=== PATIENT | female | born 2005 | race Caucasian/White ===

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

== ENCOUNTER 2024-07-16 08:06 | Emergency (ER) | payer OTHER ==
--- OUTSIDE RECORDS SUMMARY | 2024-07-16 08:09 | XMS REPORT | Continuity of Care Document ---
Author Name Unknown Address [address] [facility] [address] [place] [address] [facility] thconnect Address [address] [facility] [place] [address] Care Team Providers Care Conditioner Tumbler Name Role Phone CLAUDE DECKER Primary Care Physician Darlyn vailable BECKY MEEK Attending Clinician Unavail able Akinsimireya Becky MOSQUEDA Attending Clinician + MAYRA GALICIA Attending Clinician Unav artur Ultrasound, Tomasapadmini Attending Clinician Unavailandreas Zuñiga MD, Mayra Attending Clinician + MASON PLASCENCIA Attending Clinician MASON Calix Attending Clinician DAVID Hinson Attending Clinician Unavailable DAVID RUBIO Attending Clinician Unavailable AkinsiBecky Min Attending Clinician + LUANA JIMENEZ Attending Clinician UnavailLuana Alejandra CNM Attending Clinician [phone] Doctor Unassigned, Birdseye Attending Clinician U johnailyamel Provider[facility]St[facility] Hospital[facility] Temp Attending Clinician Darlyn vailable RACHEL ANDERSON Attending Clinician Unavailab le Lab, Adc Fam Pob I Attending Clinician Unavailab Tania Vaughn Attending Clinician [phone] TANIA RILEY Attending Clinician Unavailable Payers Payer Name Policy Type Policy Number Effective Date Expirati on Date Source [facility] PPO/POS [id number] 2023 00:00:00 [facility] [place] [id number] 2024 00:00:00 [place] [id number] 2022 00:00:00 Problems Condition Name Condition Details Condition Category Status Onset Date Resolution Date Last Treatment Date Treating Clinician Comments Source Supervisio n of high-risk Supervisio n of high-risk Disease Active - 00:00: 00 [facility] Obesity in Obesity in Disease Active 9-11 00:00: 00 [facility] Irregular menstrual cycle Irregular menstrual cycle Disease Active 7-05 00:00: 00 [facility] Well woman exam Well woman exam Disease Resolve d 0 7-05 00:00: 00 2024-05-30 00:00:00 2024-05-30 08:28:05 [facility] Well woman exam Well woman exam Disease Resolve d 0 5-17 00:00: 00 2022-08-08 00:00:00 2022-08-08 17:23:22 [facility] Allergies, Adverse Reactions, Alerts Allergy Name Allergy Type Status Severity Reaction(s) Onset Date Inactive Date Treating Clinician Comments Source AMOXICIL NAMAN DRUG INGREDI Active Anaphylaxis 0 5-17 00:00: 00 [facility] PENICILL IN DRUG INGREDI Active Anaphylaxis 0 5-17 00:00: 00 [facility] Amoxicil naman Propensi ty to adverse reaction s Active Rash 0 5-17 00:00: 00 [facility] Penicill in Propensi ty to adverse reaction s Active Rash 0 5-17 00:00: 00 [facility] Social History Social Habit Start Date Stop Date Quantity Comments Source ASSERTION 2024-03-23 00:00:00 [facility] of Social function 2024-05-30 00:00:00 2024-05-30 00:00:00 [facility] Alcoholic beverage intake 2024-05-30 00:00:00 2024-05-30 00:00:00 Ex-drinker (finding) [facility] Alcohol intake 2023-03-23 00:00:00 2023-03-23 00:00:00 Ex-drinker (finding) [facility] Exposure to SARS-CoV-2 (event) 2022-07-25 00:00:00 2022-08-04 09:56:00 Not sure [facility] Tobacco use and exposure 2022-05-11 00:00:00 2022-05-11 00:00:00 Smokeless tobacco non-user [facility] Sex assigned at 2003 00:00:00 2005 00:00:00 [facility] Smoking Status Start Date Stop Date Source Tobacco smoking consumption unknown [facility] Never smoked tobacco [facility] Medications Ordered Medication Name Filled Medication Name Start Date Stop Date Current Medication? Ordering Clinician Indication Dosage Frequency Signature (SIG) Comments Components Source PNV 67-iron ps-folate no.1-dha (VITAFOL ULTRA) 29 mg iron- 1 mg-200 mg Cap 05-30 00:00: 00 Yes [id number] 1{each} Take 1 Each by mouth in the morning. [facility] proMETHazin e 25 mg tablet 05-30 00:00: 00 Yes [id number] 25mg Take 1 tablet by mouth every 6 (six) hours as needed for Nausea and Vomiting (N/V). [facility] levonorgest rel-ethinyl estradiol (SRONYX) 0.1-20 mg-mcg per tablet 03-23 00:00: 00 05-30 00:00 :00 No [id number] 1{tbl} Take 1 tablet by mouth in the morning. [facility] levonorgest rel-ethinyl estradiol (SRONYX) 0.1-20 mg-mcg per tablet 2021-09 00:00: 00 03-23 00:00 :00 No [id number] 1{tbl} Take 1 tablet by mouth in the morning. [facility] levonorgest rel-ethinyl estradiol (SRONYX) 0.1-20 mg-mcg per tablet 8- 00:00: 00 08-04 00:00 :00 No [id number] 1{tbl} Take 1 tablet by mouth in the morning. [facility] levonorgest rel-ethinyl estradiol (SRONYX) 0.1-20 mg-mcg per tablet 5-31 00:00: 00 05-11 00:00 :00 No [id number] 1{tbl} Take 1 tablet by mouth daily. [facility] VYVANSE 20 mg capsule 4- 00:00: 00 08-08 00:00 :00 No 20mg Take 20 mg by mouth daily. [facility] Vital Signs Vital Name Observation Time Observation Value Comments S ource Systolic blood pressure 2024-06-27 12:03:00 111 mm[Hg] [facility] Diastolic blood pressure 2024-06-27 12:03:00 68 mm[Hg] [facility] Heart rate 2024-06-27 12:03:00 78 /min [facility] Body temperature 2024-06-27 12:03:00 36 Micaela [facility] Respiratory rate 2024-06-27 12:03:00 18 /min [facility] Body height 2024-06-27 12:03:00 167.6 cm [facility] Body weight 2024-06-27 12:03:00 115.395 kg [facility] BMI 2024-06-27 12:03:00 41.06 kg/m2 [facility] Systolic blood pressure 2024-05-30 12:50:00 116 mm[Hg] [facility] Diastolic blood pressure 2024-05-30 12:50:00 74 mm[Hg] [facility] Heart rate 2024-05-30 12:50:00 101 /min [facility] Body temperature 2024-05-30 12:50:00 36.67 Micaela [facility] Respiratory rate 2024-05-30 12:50:00 18 /min [facility] Body height 2024-05-30 12:50:00 167.6 cm [facility] Body weight 2024-05-30 12:50:00 115.44 kg [facility] BMI 2024-05-30 12:50:00 41.08 kg/m2 [facility] Systolic blood pressure 2023-03-23 14:22:00 109 mm[Hg] [facility] Diastolic blood pressure 2023-03-23 14:22:00 67 mm[Hg] [facility] Heart rate 2023-03-23 14:22:00 87 /min [facility] Body temperature 2023-03-23 14:22:00 36.17 Micaela [facility] Respiratory rate 2023-03-23 14:22:00 18 /min [facility] Body height 2023-03-23 14:22:00 167.6 cm [facility] Body weight 2023-03-23 14:22:00 100.699 kg [facility] BMI 2023-03-23 14:22:00 35.83 kg/m2 [facility] Systolic blood pressure 2022-08-04 15:58:00 119 mm[Hg] [facility] Diastolic blood pressure 2022-08-04 15:58:00 76 mm[Hg] [facility] Heart rate 2022-08-04 15:58:00 79 /min [facility] Body temperature 2022-08-04 15:58:00 36.67 Micaela [facility] Respiratory rate 2022-08-04 15:58:00 18 /min [facility] Body height 2022-08-04 15:58:00 167.6 cm [facility] Body weight 2022-08-04 15:58:00 94.575 kg [facility] BMI 2022-08-04 15:58:00 33.65 kg/m2 [facility] Body mass index (BMI) [Percentile] Per age and sex 2022-08-04 15:58:00 96.91 % [facility] Systolic blood pressure 2022-05-11 14:50:00 109 mm[Hg] [facility] Diastolic blood pressure 2022-05-11 14:50:00 71 mm[Hg] [facility] Heart rate 2022-05-11 14:50:00 82 /min [facility] Body temperature 2022-05-11 14:50:00 36.22 Micaela [facility] Respiratory rate 2022-05-11 14:50:00 18 /min [facility] Body height 2022-05-11 14:50:00 167.6 cm [facility] Body weight 2022-05-11 14:50:00 88.196 kg [facility] BMI 2022-05-11 14:50:00 31.38 kg/m2 [facility] Body mass index (BMI) [Percentile] Per age and sex 2022-05-11 14:50:00 95.59 % [facility] Procedures Procedure Date / Time Performed Performing Clinicia n Source ALPHA FETOPROTEIN-MATERNAL SER 2024-06-27 12:57:00 Becky Meek [facility] POCT URINALYSIS 2024-06-27 12:06:00 Becky Meek [facility] FIRST TRIMESTER ULTRASOUND 2024-06-05 20:23:00 Becky Meek [facility] POCT TEST 2024-05-30 12:49:00 Sabino Meek [facility] POCT URINALYSIS W/O SPECIFIC GRAVITY 2024-05-30 12:49:00 Becky Meek [facility] ASSIGNMENT OF BENEFITS 2023-03-23 13:45:37 Docto r Unassigned, Birdseye [facility] Encounters Start Date/Time End Date/Time Encounter Type Admission Type Attending Clinicians Care Facility Care Department Encounter ID Source 2024-08-02 13:00:00 2024-08-02 13:00:00 Outpatient P [facility] [id number] [facility] 2024-07-06 00:00:00 2024-07-09 10:09:12 Telephone FantasmaLucianoBecky C [facility] HONING MACHINE OPERATOR [facility]ILD [facility] 1.2.840.114 350.1.13.10 4.2.7.2.686 [id number] [facility] 2024-06-27 07:15:00 2024-06-27 07:56:39 Outpatient R BECKY MEEK [facility] [id number] [facility] 2024-06-27 07:15:00 2024-06-27 07:56:39 Routine Visit Fantasma Becky Conley [facility] HONING MACHINE OPERATOR [facility] & CHILD [facility] 1..840.114 350.1.13.10 4.2.7.2.686 [id number] [facility] 2024-06-05 00:00:00 2024-06-05 16:57:01 Abstract Becky Meek [facility] HONING MACHINE OPERATOR [facility]ILD [facility] 1..840.114 350.1.13.10 4.2.7.2.686 [id number] [facility] 2024-06-05 15:00:00 2024-06-05 15:56:13 Outpatient R MAYRA WRIGHT [facility] [id number] [facility] 2024-06-05 15:00:00 2024-06-05 15:56:13 Set Up Machinist Visit Ultrasound, [facility] Mayra Wright [facility] HONING MACHINE OPERATOR [facility] & CHILD [facility] 1..840.114 350.1.13.10 4.2.7.2.686 [id number] [facility] 2024-05-30 08:15:00 2024-05-30 09:03:17 Outpatient R BECKY MEEK [facility] [id number] [facility] 2024-05-30 08:15:00 2024-05-30 09:03:17 Initial Visit Akinsipe, Becky C [facility] HONING MACHINE OPERATOR [facility] CHILD [facility] 1.2840.114 350.1.13.10 4.2.7.2.686 [id number] [facility] 2024-05-04 10:00:00 2024-05-04 10:00:00 Outpatient R MASON YEUNG S, MASON [facility] [id number] [facility] 2023-08-02 13:07:24 2023-08-02 13:07:24 Outpatient SFA SFA [id number] Mejia Ahmadi 2023-06-22 08:15:00 2023-06-22 08:15:00 Outpatient R BECKY MEEK [facility] [id number] [facility] 2023-03-28 00:00:00 2023-03-28 00:00:00 Patient Secure Msg Becky Meek [facility] HONING MACHINE OPERATOR [facility] 1..114 350.1.13.10 4.2.7.2.686 [id number] [facility] 2023-03-23 09:30:00 2023-03-23 11:05:26 Outpatient LUANA HERNANDEZ [facility] [id number] [facility] 2023-03-23 09:30:00 2023-03-23 11:05:26 Office Visit Becky Meek Brenda A [facility] HONING MACHINE OPERATOR [facility]ILD [facility] 1.20.114 350.1.13.10 4.2.7.2.686 [id number] [facility] 2023-03-23 00:00:00 2023-03-23 00:00:00 Orders Only Doctor Unassigned, Birdseye [facility] 1.840.114 350.1.13.10 4.2.7.2.686 [id number] [facility] 2023-02-03 09:30:00 2023-02-03 09:30:00 Outpatient BECKY PARKER [facility] [id number] [facility] 2022-08-04 09:45:00 2022-08-04 10:07:44 Office Visit Provider, TomasaRmchp Becky Burgos Brenda A [facility] HONING MACHINE OPERATOR [facility]ILD [facility] ..840.114 350.1.13.10 4.2.7.2.686 [id number] [facility] 2022-08-04 09:45:00 2022-08-04 10:07:44 Outpatient LUANA HERNANDEZ [facility] [id number] [facility] 2022-05-11 09:30:00 2022-05-11 10:00:44 Outpatient BECKY PARKER [facility] [id number] [facility] 2022-05-11 09:30:00 2022-05-11 10:00:44 Office Visit Becky Meek [facility] HONING MACHINE OPERATOR [facility] 1..840.114 350.1.13.10 4.2.7.2.686 [id number] [facility] 2022-02-16 14:45:00 2022-02-16 15:25:38 Office Visit Becky Meek [facility] HONING MACHINE OPERATOR [facility]ILD [facility] 1..840.114 350.1.13.10 4.2.7.2.686 [id number] [facility] 2022-02-16 14:45:00 2022-02-16 15:25:38 Outpatient BECKY PARKER [facility] [id number] [facility] 2022-02-16 14:45:00 2022-02-16 14:45:00 Outpatient R BECKY MEEK [facility] [id number] [facility] 2022-02-16 14:45:00 2022-02-16 14:45:00 Outpatient R BECKY MEEK [facility] [id number] [facility] 2022-02-02 13:15:00 2022-02-02 14:35:42 Outpatient R BECKY MEEK [facility] [id number] [facility] 2022-02-02 13:15:00 2022-02-02 14:35:42 Office Visit Becky Meek [facility] HONING MACHINE OPERATOR [facility] 1.2.840.114 350.1.13.10 4.2.7.2.686 [id number] [facility] 2022-02-02 13:15:00 2022-02-02 14:35:42 Outpatient R BECKY MEEK [facility] [id number] [facility] 2022-02-02 00:00:00 2022-02-02 00:00:00 Orders Only Doctor Unassigned, Birdseye [facility] 1.2.840.114 350.1.13.10 4.2.7.2.686 [id number] [facility] 2021-12-29 00:00:00 2021-12-29 00:00:00 Orders Only Doctor Unassigned, Birdseye [facility] 1.2.840.114 350.1.13.10 4.2.7.2.686 [id number] [facility] 2021-07-01 00:00:00 2021-07-01 00:00:00 Orders Only Doctor Unassigned, Birdseye [facility] 1.2.840.114 350.1.13.10 4.2.7.2.686 [id number] [facility] 2021-06-18 00:00:00 2021-06-18 00:00:00 Patient Secure Msg Doctor Unassigned, Birdseye [facility] 1..840.114 350.1.13.10 4.2.7.2.686 [id number] [facility] 2021-04-22 00:00:00 2021-04-22 00:00:00 Orders Only Doctor Unassigned, Birdseye [facility] 1.2.840.114 350.1.13.10 4.2.7.2.686 [id number] [facility] 2020-10-04 16:00:00 2020-10-04 16:00:00 Outpatient R RACHEL ANDERSON [facility] [id number] [facility] 2020-08-07 14:34:56 2020-08-07 14:54:56 Laboratory Only Lab, Adc [facility] Po I Tania Riley [facility] Office [address] 1..840.114 350.1.13.10 4.2.7.2.686 [id number] [facility] 2020-08-07 14:00:00 2020-08-07 14:00:00 Outpatient TANIA CASH [facility] [id number] [facility] Results Test Description Test Time Test Comments Results Result Co mments Source [facility] Urinalysis w/o Specific [id number] 12:49:00* Test Item Value Reference Range Interpretation Comme nts POCT PH U (test code = 3254) 6 mg/dl 5-8 POCT U LEUK EST (test code = 3263) 1+ Negative - Negative POCT U NIT (test code = 3262) neg Negative - Negati ve POCT U PROT (test code = 3259) trace Negative - Negat jyoti POCT U GLU (test code = 3256) neg Negative - Negati ve POCT U KETONE (test code = 3258) neg Negative - Neg ative POCT U BLD (test code = 3257) trace Negative - Negati ve [facility] [id number] 12:49:00* Test Item Value Reference Range Interpretation Comme nts POCT PREG (test code = 1605) Positive On board controls acceptable with C Line (test code = 3574) Yes POCT PREG LOT # (test code = 3575) POCT PREG TEST DATE ( test code = 3576) [facility] Notes Date/Time Note Provider Source 2024-07-09 10:01:34 Notified patient of results and need for genetic counseling. Pt verbalized understanding. 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 Notified patient provider will review results and call back with POC. Pt verbalized understanding. JOESPH DANIELLE RN 07/09/2024 9:39 AM T [facility] 2024-07-06 15:01:48 Keyur Zelaya is a 18 year old female returning missed call Carmencita Perea [facility] 2024-07-06 14:57:00 Attempted to call patient, no answer, left vm. Maggie Washington LVN [facility] 2024-07-06 13:53:05 Keyur Zelaya is a 18 year old female Pt is calling speak with the nurse about her gestational age. Rick Drummond [facility]
[2024-07-16] MEDS ORDERED: DICYCLOMINE HCL 20 MG/2 ML AMP IM ONE (08:44)
[2024-07-16] MEDS ORDERED: ONDANSETRON 4 MG/2 ML VIAL ONE (08:44)
[2024-07-16] MEDS ORDERED: NA CHLORIDE 0.9% 1,000 ML ONE (08:44)
[2024-07-16 09:05] LABS: Specific Gravity 1.022 (1.005-1.030); Urine Bilirubin NEGATIVE (Negative); Urine Blood Negative (Negative); Urine Clarity Clear (Clear); Urine Color Light-Yellow (Yellow); Urine Glucose NEGATIVE (Negative); Urine Ketones NEGATIVE (Negative); Urine Microscopic Reflex YN NO UMIC; Urine Nitrite NEGATIVE (Negative); Urine Protein NEGATIVE (Negative); Urine Urobilinogen Normal (Normal); Urine pH 6.5 (5.0-7.0)
[2024-07-16 09:06] LABS: Absolute Eosinophils 0.1 K/uL (0-0.5); Absolute Lymphocytes (CBC) 2.1 K/uL (0.7-4.9); Absolute Monocytes 0.4 K/uL (0.1-1.3); Absolute Neutrophil 8.5 K/uL (1.8-8.0); Basophils % 0.3 % (0-1.3); Eosinophils % 0.8 % (0-4.4); Hematocrit 34.6 % (36.0-45.0); Hemoglobin 11.7 g/dL (12.0-15.0); MCHC 33.8 g/dL (32.0-36.0); MCV 88.7 fL (80-100); MPV 9.3 fL (7.6-11.3); Monocytes % 3.4 % (3.3-12.3); Neutrophils % 76.5 % (41.7-73.7); Platelets 228 thou/uL (152-406); Red Cell Distribution Width 12.7 % (12.1-15.2)
[2024-07-16 09:14] LABS: Specific Gravity 1.022 (1.005-1.030)
[2024-07-16 09:17] LABS: Albumin 2.8 g/dL (3.4-5.0); Albumin/Globulin Ratio 0.8 (1.1-1.8); Anion Gap 7.7 mEq/L (5.0-15.0); Bilirubin Total 0.5 mg/dL (0.2-1.0); Globulin 3.5 g/dL (2.3-3.5); Potassium 3.7 mEq/L (3.5-5.1); Protein, Total 6.3 g/dL (6.4-8.2)
--- NOTE | 2024-07-16 09:55 | RAD REPORT ---
EXAM:OB Limited . CLINICAL HISTORY: with abdominal pain. ABD PAIN TECHNIQUE: Limited OB ultrasound performed. FINDINGS: A single live intrauterine gestation is identified. position is breech. Placenta is posterior w ithout abruption or previa. Amniotic fluid volume is subjectively normal. Estimated gestational age is 17 weeks 6 days with JOSE 12/18/2024. Heart rate measures 140 BPM. Cervix is long and closed measurin g up to 4 cm. IMPRESSION: Single live intrauterine fetus as detailed without acute process seen.
--- NOTE | 2024-07-16 10:20 | EDPHYS ---
Physician Documentation [facility] Name: Radha Zelaya Age: 18 yrs Sex: Female : 2005 Arrival Date: 07/16/2024 Time: 08:06 Bed 8 Private MD: ED Physician Venkatesh Marvin HPI: 07/16 08:30 This 18 yrs old Female presents to ER via Ambulatory with complaints of 18 weeks cp , Diarrhea, Nausea. 08:30 The patient presents to the emergency department with nausea, that is moderate, cp diarrhea, that is continuous, abdominal pain, of the abdomen diffusely, described as crampy. Onset: The symptoms/episode began/occurred last night. Possible causes: bad food exposure. 08:30 Associated signs and symptoms: Pertinent negatives: constipation, fever, GI bleeding, cp vomiting. Severity of symptoms: in the emergency department the symptoms are unchanged despite home interventions. 08:30 Patient reports she is approximately 18 weeks . Denies vaginal bleeding, denies cp leakage of fluid. 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 - Infectious Disease History:: Denies. - Social history:: Smoking status: Patient denies any tobacco usage or history of. ROS: 08:35 Constitutional: Negative for body aches, chills, fever, cp 08:35 Respiratory: Negative for cough, shortness of breath, wheezing, 08:35 : Negative for urinary symptoms, vaginal bleeding, 08:35 Neuro: Negative for altered mental status, dizziness, headache, weakness, 08:35 All other systems are negative, 08:35 Abdomen/GI: Positive for abdominal pain, nausea, diarrhea, Negative for vomiting, cp constipation, hematemesis, Exam: 08:40 Constitutional: The patient appears in no acute distress, alert, awake, non-toxic, well cp developed, well nourished, 08:40 Head/Face: Normocephalic, atraumatic. cp 08:40 Eyes: Periorbital structures: appear normal, Conjunctiva: normal, no exudate, no injection, Sclera: no appreciated abnormality, Lids and lashes: appear normal, bilaterally, 08:40 ENT: External ear(s): are unremarkable, Nose: is normal, Mouth: Lips: moist, Oral mucosa: moist, Posterior pharynx: Airway: no evidence of obstruction, patent, 08:40 Chest/axilla: Inspection: normal, 08:40 Cardiovascular: Rate: normal, Rhythm: regular, 08:40 Respiratory: the patient does not display signs of respiratory distress, Respirations: normal, no use of accessory muscles, no retractions, labored breathing, is not present, Breath sounds: are clear throughout, no decreased breath sounds, no stridor, no wheezing, 08:40 Abdomen/GI: Inspection: abdomen appears normal, Bowel sounds: active, all quadrants, Palpation: soft, in all quadrants, mild abdominal tenderness, in the right upper quadrant and left upper quadrant, rebound tenderness, is not appreciated, involuntary guarding, is not appreciated, 08:40 Back: pain, is absent, ROM is normal, Vital Signs: 08:20 BP 136 / 98; Pulse 93; Resp 16; Pulse Ox 100% on R/A; Weight 115.21 kg; Height 5 ft. 6 iw in. ; Pain 4/10; 09:01 BP 115 / 62; kc6 08:20 Body Mass Index 41.00 (115.21 kg, 167.64 cm) iw 08:20 Pain Scale: Adult iw MDM: 08:16 Medical Screening Exam initiated cp 09:00 Differential diagnosis: Nonspecific abd pain, gastritis, cholecystitis, pancreatitis, cp viral gastroenteritis, gastroenteritis. 10:18 Data reviewed: vital signs, nurses notes, lab test result(s), radiologic studies, cp ultrasound, and as a result, I will discharge patient. 10:18 I considered the following discharge prescriptions or medication management in the emergency department Medications were administered in the Emergency Department. See MAR. Counseling: I had a detailed discussion with the patient and/or guardian regarding the historical points, exam findings, and any diagnostic results supporting the discharge/admit diagnosis, lab results, radiology results, to return to the emergency department if symptoms worsen or persist or if there are any questions or concerns that arise at home. Response to treatment: the patient's symptoms have markedly improved after treatment, and as a result, I will discharge patient. ED course: VSS. Patient tolerating po fluids. Will discharge to home for continued monitoring. 07/16 08:26 Order name: CBC with Diff; Complete Time: 09:31 cp 07/16 10:10 Interpretation: Normal except: WBC 11.10; HGB 11.7; HCT 34.6; NICKY% 76.5; NEUT A 8.5. cp 07/16 08:26 Order name: CMP; Complete Time: 09:31 cp 07/16 10:10 Interpretation: Normal except: CL 110; CRE 0.43; AST 11; TP 6.3; ALB 2.8; A/G 0.8. cp 07/16 08:26 Order name: Lipase; Complete Time: 09:31 cp 07/16 08:26 Order name: Test, Urine; Complete Time: 09:31 cp 07/16 08:26 Order name: Urinalysis w/ reflexes; Complete Time: 09:31 cp 07/16 09:32 Interpretation: Reviewed. cp 07/16 08:26 Order name: US OB Limited; Complete Time: 10:05 cp 07/16 10:06 Interpretation: Report reviewed. cp 07/16 08:26 Order name: IV Saline Lock; Complete Time: 08:53 cp 07/16 08:26 Order name: Labs collected and sent; Complete Time: 08:53 cp 07/16 10:07 Order name: PO challenge; Complete Time: 10:19 cp Administered Medications: 08:58 Drug: Ondansetron IVP 4 mg IVP once; over 2 minutes Route: IVP; Site: right antecubital;kc6 09:20 Follow up: Response: No adverse reaction; Nausea is decreased kc 08:58 Drug: NS 0.9% IV 1000 ml IV at 1 bolus Per protocol; to be given as a bolus over 60 kc6 minutes Route: IV; Rate: 1 bolus; Site: right antecubital; 10:32 Follow up: Response: No adverse reaction; IV Status: Completed infusion; IV Intake: kc6 1000ml 08:58 Drug: Dicyclomine IM 20 mg IM once Route: IM; Site: left deltoid; kc6 09:20 Follow up: Response: No adverse reaction kc Disposition: 07/17 09:24 Chart complete. cp Disposition Summary: 07/16/24 10:19 Discharge Ordered Notes: Location: Home cp Problem: new cp Symptoms: have improved cp Condition: Stable cp Diagnosis - Diarrhea, unspecified cp - Nausea cp - 17 weeks gestation of cp Followup: cp - With: Private Physician - When: 2 - 3 days - Reason: Worsening of condition Discharge Instructions: - Discharge Summary Sheet cp - Abdominal Pain During cp - Food Choices to Help Relieve Diarrhea, Adult cp - Diarrhea, Adult cp - Nausea, Adult cp Forms: - Work release form cp - Family Work Release cp - Medication Reconciliation Form cp - Antibiotic Education cp - Prescription Opioid Use cp - Patient Portal Instructions cp - Leadership Thank You Letter cp Prescriptions: - Zofran 4 mg Oral Tablet - take 1 tablet ORAL route every 12 hours As needed; 20 tablet; Refills: 0, cp Product Selection Permitted Addendum: 07/18/2024 16:28 Co-signature as Attending Physician, Venkatesh Marvin DO. m s3 Signatures: Dispatcher [employer] Jacquelin Kaplan RN RN iw Manuel Aguirre PA PA cp Venkatesh Marvin DO DO ms3 Afshan Barger RN RN kc6 Corrections: (The following items were deleted from the chart) 07/17 09:20 07/16 08:15 Constitutional: Negative for body aches, chills, fever, cp cp 07/17 09:20 07/16 08:15 Respiratory: Negative for cough, shortness of breath, wheezing, cp cp 07/17 09:20 07/16 08:15 Abdomen/GI: Positive for abdominal pain, nausea, diarrhea, Negative for cp vomiting, constipation, hematemesis, cp 07/17 09:20 07/16 08:15 : Negative for urinary symptoms, vaginal bleeding, cp cp 07/17 09:20 07/16 08:15 Neuro: Negative for altered mental status, dizziness, headache, weakness, cpcp 07/17 09:20 07/16 08:15 All other systems are negative, cp cp
--- NOTE | 2024-07-16 10:20 | ER ---
Nurse's Notes [facility] Name: Radha Zelaya Age: 18 yrs Sex: Female : 2005 Arrival Date: 07/16/2024 Time: 08:06 Bed 8 Private MD: Diagnosis: Diarrhea, unspecified;Nausea;17 weeks gestation of Presentation: 07/16 08:20 Chief complaint: Patient states: diarrhea since last night, thinks she may have eaten iw some bad food, other members of her household are sick also , is 18 weeks . Coronavirus screen: At this time, the client does not indicate any symptoms associated with coronavirus-19. Ebola Screen: No symptoms or risks identified at this time. Initial Sepsis Screen: Does the patient meet any 2 criteria? No. Patient's initial sepsis screen is negative. Does the patient have a suspected source of infection? No. Patient's initial sepsis screen is negative. Risk Assessment: Do you want to hurt yourself or someone else? Patient reports no desire to harm self or others. Onset of symptoms was July 15, 2024. 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 - Infectious Disease History:: Denies. - Social history:: Smoking status: Patient denies any tobacco usage or history of. Screenin:00 [facility] ED Fall Risk Assessment (Adult) History of falling in the last 3 months, kc6 including since admission No falls in past 3 months (0 pts) Confusion or Disorientation No (0 pts) Intoxicated or Sedated No (0 pts) Impaired Gait No (0 pts) Mobility Assist Device Used No (0 pt) Altered Elimination No (0 pt) Score/Fall Risk Level 0 - 2 = Low Risk Oriented to surroundings. Abuse screen: Denies threats or abuse. Denies injuries from another. Nutritional screening: No deficits noted. Tuberculosis screening: No symptoms or risk factors identified. Assessment: 09:01 General: Appears in no apparent distress. comfortable, well groomed, well developed, kc6 Behavior is calm, cooperative, appropriate for age. Pain: Complains of pain in abdomen Quality of pain is described as crampy. Neuro: Level of Consciousness is awake, alert, obeys commands, Oriented to person, place, time, situation, Appropriate for age. Cardiovascular: Capillary refill < 3 seconds. Respiratory: Airway is patent Trachea midline Respiratory effort is even, unlabored, Respiratory pattern is regular, symmetrical. GI: Abdomen is round non-distended, Reports cramping, diarrhea, nausea, vomiting. : No signs and/or symptoms were reported regarding the genitourinary system. Urine is clear. EENT: No signs and/or symptoms were reported regarding the EENT system. Derm: No signs and/or symptoms reported regarding the dermatologic system. Skin is intact, is healthy with good turgor, Skin is pink, warm \T\ dry. Musculoskeletal: No signs and/or symptoms reported regarding the musculoskeletal system. Circulation, motion, and sensation intact. Capillary refill < 3 seconds, Range of motion: intact in all extremities. 10:07 Reassessment: Patient appears in no apparent distress at this time. No changes from kc6 previously documented assessment. Patient and/or family updated on plan of care and expected duration. Pain level reassessed. Patient is alert, oriented x 3, equal unlabored respirations, skin warm/dry/pink. Vital Signs: 08:20 BP 136 / 98; Pulse 93; Resp 16; Pulse Ox 100% on R/A; Weight 115.21 kg; Height 5 ft. 6 iw in. ; Pain 4/10; 09:01 BP 115 / 62; kc6 08:20 Body Mass Index 41.00 (115.21 kg, 167.64 cm) iw 08:20 Pain Scale: Adult iw ED Course: 08:09 Patient arrived in ED. im 08:13 Afshan Barger, GERSON is Primary Nurse. kc6 08:15 Manuel Aguirre PA is PHCP. cp 08:16 Venkatesh Marvin DO is Attending Physician. cp 08:21 Triage completed. iw 08:22 Arm band placed on. iw 08:53 CBC with Diff Sent. cc6 08:53 CMP Sent. cc6 08:53 Lipase Sent. cc6 08:53 Test, Urine Sent. cc6 08:53 Urinalysis w/ reflexes Sent. cc6 08:53 Initial lab(s) drawn, by me, sent to lab. Inserted saline lock: 20 gauge in right cc6 antecubital area, using aseptic technique. Blood collected. Flushed with 10 mL NS. 09:00 Patient has correct armband on for positive identification. Bed in low position. Call kc6 light in reach. Side rails up X 1. Adult w/ patient. Pulse ox on. NIBP on. Door closed. Noise minimized. Lights dimmed. Pillow given. 09:00 Patient maintains SpO2 saturation greater than 95% on room air. kc6 09:14 OB Limited In Process Unspecified. EDMS 10:19 Diet: Patient given snack. kc6 10:32 No provider procedures requiring assistance completed. IV discontinued, intact, kc6 bleeding controlled, No redness/swelling at site. Pressure dressing applied. Administered Medications: 08:58 Drug: Ondansetron IVP 4 mg IVP once; over 2 minutes Route: IVP; Site: right antecubital;kc6 09:20 Follow up: Response: No adverse reaction; Nausea is decreased kc6 08:58 Drug: NS 0.9% IV 1000 ml IV at 1 bolus Per protocol; to be given as a bolus over 60 kc6 minutes Route: IV; Rate: 1 bolus; Site: right antecubital; 10:32 Follow up: Response: No adverse reaction; IV Status: Completed infusion; IV Intake: kc6 1000ml 08:58 Drug: Dicyclomine IM 20 mg IM once Route: IM; Site: left deltoid; kc6 09:20 Follow up: Response: No adverse reaction kc6 Medication: 10:33 VIS not applicable for this client. kc6 Intake: 10:32 IV: 1000ml; Total: 1000ml. kc6 Outcome: 10:19 Discharge ordered by MD. cp 10:32 Discharged to home ambulatory, with significant other, kc6 10:32 Condition: good 10:32 Discharge instructions given to patient, significant other, Instructed on discharge instructions, follow up and referral plans. medication usage, Demonstrated understanding of instructions, follow-up care, medications, Prescriptions given X 1, 10:33 Patient left the ED. kc6 Signatures: Dispatcher [employer] EDJacquelin Briones RN RN Manuel Titus PA PA cp Campbell, Kaitlyn RN RN kc6 Maxine Deleon Cassandra cc6 Corrections: (The following items were deleted from the chart) 08:22 08:20 BP 136 / 98; Pulse 93bpm; Resp 16bpm; Pulse Ox 100% RA; iw iw
[2024-07-16 11:01] VITALS: O2SAT 100
[2024-07-16 11:02] VITALS: BP 115/62
== END 2024-07-16 10:33 | disposition home or self-care (01) ==
LOC: SUPCPDRO 08:06 → ER 08:06
DX: O26.892 Other specified pregnancy related conditions, second trimester (principal); Z3A.17 17 weeks gestation of pregnancy
CPT/HCPCS: 85025; 36415; 81025; 81003; 83690; 80053; 76815; J0500; J2405; J7030; 96361; 96372; 96374; 99284